=== PATIENT | female | born 1950 | race Caucasian/White ===

== ENCOUNTER → 2017-12-18 10:40 | Outpatient (CLI) | payer MEDICARE, BC ==
[~2017-12-18 10:40] MED LIST: COLACE100 MG PO; HYDROCODON-ACE1 EAC6 PO; LOVASTATIN10 MG PO; TRIAMTERENE-HCT1 TA1 PO
[2017-12-18 11:25] LABS: BASOPHILS 0.2 % (0-2); EOSINOPHILS 0.5 % (0-7); HEMATOCRIT 41.3 % (36.0-48.0); HEMOGLOBIN 13.9 g/dL (12-16); IMMATURE GRANULOCYTES 0.1 % (0-5); LYMPHOCYTES 24.6 % (15-50); MCH 31.6 pg (26.0-34.0); MCHC 33.7 g/dL (31.0-37.0); MCV 93.9 fL (80.0-100.0); MEAN PLATELET VOLUME 11.1 fL (7.4-10.4); MONOCYTES 5.9 % (2-11); NEUTROPHILS 68.7 % (40-80); PLATELET COUNT 300 10x3/uL (130-400); RDW 12.8 % (11.5-14.5); WBC 8.8 10x3/uL (4.8-10.8)
[2017-12-18 11:54] LABS: ALBUMIN 3.9 g/dL (3.4-5.0); ANION GAP 13.2 mmol/L (8-16); BILIRUBIN - TOTAL 1.2 mg/dL (0.2-1.3); CALCIUM 9.5 mg/dL (8.5-10.1); CARBON DIOXIDE 30.8 mmol/L (21.0-32.0); PROTEIN - SERUM 7.7 g/dL (6.4-8.2)
[2017-12-26 17:24] VITALS: BMI 22.8
== END | disposition home or self-care (01) ==
LOC: D.CT 10:40
PROVIDERS: Internal Medicine Gastroenterology
DX: R93.3 Abnormal findings on diagnostic imaging of other parts of digestive tract (principal); K63.89 Other specified diseases of intestine

== ENCOUNTER 2017-12-24 11:00 | Inpatient (IN) | payer MEDICARE, BC ==
[2017-12-22 15:41] LABS: BASOPHILS 0.4 % (0-2); EOSINOPHILS 0.9 % (0-7); HEMATOCRIT 41.2 % (36.0-48.0); IMMATURE GRANULOCYTES 0.2 % (0-5); LYMPHOCYTES 25.2 % (15-50); MCH 31.5 pg (26.0-34.0); MCV 92.8 fL (80.0-100.0); MEAN PLATELET VOLUME 11.3 fL (7.4-10.4); MONOCYTES 6.5 % (2-11); NEUTROPHILS 66.8 % (40-80); PLATELET COUNT 271 10x3/uL (130-400); RBC 4.44 10x6/uL (4.00-5.40); RDW 12.7 % (11.5-14.5); WBC 10.5 10x3/uL (4.8-10.8)
[2017-12-22 15:53] LABS: APTT 29.4 SECONDS (22.8-39.4); PROTIME 12.8 SECONDS (11.6-15.0)
[2017-12-22 15:56] LABS: ANION GAP 11.6 mmol/L (8-16); CALCIUM 9.2 mg/dL (8.5-10.1); CARBON DIOXIDE 31.1 mmol/L (21.0-32.0); CREATININE - SERUM 1.1 mg/dL (0.6-1.3)
[2017-12-22 16:01] LABS: POTASSIUM - SERUM 2.7 mmol/L (3.5-5.1)
[~2017-12-24] VITALS: Ht 157.5 cm; Wt 56.7 kg
[2017-12-24] VITALS (9 sets, daily range): BP systolic 82–120; BP diastolic 37–62; BMI 22.3
--- NOTE | ~2017-12-24 | OP ---
PATIENT NAME: NICHOLE VALENZUELA MEDICAL RECORD: [id number] :48 LOCATION:D.MS [id number] ADMISSION DATE:12/24/17 SURGEON: NEETA HOPKINS MD DATE OF OPERATION: 12/24/2017 PREOPERATIVE DIAGNOSIS: Sigmoid colon cancer. POSTOPERATIVE DIAGNOSIS: Sigmoid colon cancer. PROCEDURE: Hand-assisted laparoscopic surgery, sigmoid colectomy. SURGEON: Neeta Hopkins MD CAR WIPER: None. BLOOD LOSS: 100 cc. ANESTHESIA: General. COMPLICATIONS: None. The risks, possible complications and alternatives to procedure were explained to the patient. She elects to proceed. OPERATIVE COURSE: The patient was conveyed to the operating room electively on 12/24/2017. General anesthesia was induced by the anesthesia staff. The patient was positioned supine. The abdomen and upper thighs and perineum were sterilely prepped and draped. A Pfannenstiel type incision was accomplished, 2 fingerbreadths above the pubic symphysis. Sharp dissection was carried down through Sanjay's fascia. I then incised the anterior fascia transversely. Subfascial dissection was performed cephalad and caudad. I the rectus muscles in the midline. The peritoneal cavity was entered sharply. An Shaq retractor was placed. The Gelport was then attached on top of the Shaq retractor. A 12-mm trocar was inserted through the Gelport. CO2 insufflation was begun. Once a sufficient pneumoperitoneum had been achieved, 2 more trocars were inserted. These were 5-mm trocars. An abdominal survey was undertaken. Laparoscopic photographs were obtained. I inserted my hand in through the Gelport. Utilizing the EnSeal device, I incised along the left white line of Toldt up to the splenic flexure. I folded the left colon medially and this freed up some of the descending colon. I then incised in the intersigmoid fossa. I then took the top of the Gelport. I was able to exteriorize the sigmoid colon. I chose the distal extent of my resection to be the junction of the descending and sigmoid colons. I stapled across the colon here with a ADRIANNA-75 stapler. I then chose an area just proximal to the rectum to be at the distal extent of my resection. I stapled across here with a ADRIANNA-75 stapler as well. I then took down the sigmoid colon mesentery with an EnSeal device. The sigmoid colon was sent to pathology after I opened it up on the back table. The distal margin was a little close from my taste, so I decided to resect the sigmoid colon and a bit of the rectum. OPERATIVE REPORT [id number] NICHOLE VALENZUELA I then created a window in the mesorectum bluntly. I stapled across the upper rectum with a TA 60 stapler. The resulting large bowel which comprised was comprised of a bit of rectum as well as the remaining sigmoid colon was then removed after dividing the mesorectum with the EnSeal device. I then brought the descending colon and the rectum into apposition side by side. It was kept in place with a row of 3-0 Vicryl sutures, which kept the antimesenteric borders together. A small proctotomy and small colotomy were accomplished. Anvils of the ADRIANNA-75 stapler were advanced and then fired. The resulting colorectal defect was then closed with single firing of the TA 60 stapler. I irrigated locally. There was no bleeding. I ensured the small bowel was not twisted on its mesentery and that there had been no injury to the small bowel. I then reperitonealized with a running #1 Vicryl. The rectus muscles were approximated in the midline with multiple interrupted horizontal mattress #1 Vicryls. The anterior fascia was closed with a running #1 Vicryls. Sanjay fascia was approximated with interrupted 3-0 Vicryls. The subdermis was approximated with interrupted 3-0 Vicryls. The skin was closed with a running intracuticular 3-0 Vicryl. The trocar sites were closed with interrupted intracuticular 3-0 Vicryls. Sterile dressings were applied. The patient was extubated and conveyed to post-anesthesia care unit where she was in stable condition. TRANSINT:[id number] Voice Confirmation ID: [id number] DOCUMENT ID: [id number] NEETA HOPKINS MD CC: MILVIA GREWAL MD and CON HERNÁNDEZ MD [id number] DICTATION DATE: 02/17/181701 FIRE HOSE CURER: 02/17/181732 DIS IN 12/29/17 [id number] [place] [address]
--- NOTE | ~2017-12-24 | DS ---
PATIENT:NICHOLE VALENZUELA :48 MEDICAL RECORD: [id number] DISCHARGE SUMMARY ADMISSION DATE: 12/24/17 DISCHARGE DATE: 12/29/17 PRINCIPAL DIAGNOSIS: Colon cancer. PRINCIPAL PROCEDURE: JOSHUA sigmoid colectomy. HOSPITAL COURSE: The patient underwent the above operative procedure. Her pain was initially controlled with an epidural pain pump. Her bowel function returned. Her diet was advanced. She is being dismissed home. Discharge instructions were given to the patient verbally by me. She was instructed to call for any nausea, vomiting, fever, or chills. She is going to be dismissed home on [place] as well as Colace. I will see her in the office in 2-3 weeks. She is going to be following up with Dr. Solo as well. She is not to do any lifting or straining. I will plan for an MRI of the liver sometime in the future. TRANSINT:[id number] Voice Confirmation ID: [id number] DOCUMENT ID: [id number] NEETA HOPKINS MD at 1158 CC: [id number] DICTATION DATE: 12/29/171938 RECEPTIONIST/TELEPHONE OPERATOR: 12/30/17 1235 DIS IN 12/29/17 [facility] [address] [place] [address]
[~2017-12-24 11:00] MED LIST changes: -COLACE100 MG PO; -HYDROCODON-ACE1 EAC6 PO
[2017-12-25] VITALS (7 sets, daily range): BP systolic 82–104; BP diastolic 34–57; BMI 22.9; BMI 22.8
[2017-12-25 05:36] LABS: BASOPHILS 0 % (0-2); EOSINOPHILS 0 % (0-7); HEMATOCRIT 33.3 % (36.0-48.0); HEMOGLOBIN 11.2 g/dL (12-16); IMMATURE GRANULOCYTES 0.3 % (0-5); LYMPHOCYTES 5.9 % (15-50); MCH 30.9 pg (26.0-34.0); MCHC 33.6 g/dL (31.0-37.0); MEAN PLATELET VOLUME 11.2 fL (7.4-10.4); MONOCYTES 6.7 % (2-11); NEUTROPHILS 87.1 % (40-80); RBC 3.62 10x6/uL (4.00-5.40); RDW 13.1 % (11.5-14.5); WBC 10.3 10x3/uL (4.8-10.8)
[2017-12-25 06:01] LABS: PLATELET COUNT 210 10x3/uL (130-400)
[2017-12-25 06:13] LABS: ALBUMIN 2.7 g/dL (3.4-5.0); ANION GAP 12.4 mmol/L (8-16); BILIRUBIN - TOTAL 1.05 mg/dL (0.2-1.3); CALCIUM 7.8 mg/dL (8.5-10.1); CARBON DIOXIDE 27.3 mmol/L (21.0-32.0); CREATININE - SERUM 0.9 mg/dL (0.6-1.3); MAGNESIUM - SERUM 1.8 mg/dL (1.8-2.4); PHOSPHOROUS 2.8 mg/dL (2.5-4.9); PROTEIN - SERUM 5.6 g/dL (6.4-8.2)
[2017-12-25 06:18] LABS: POTASSIUM - SERUM 3.7 mmol/L (3.5-5.1)
[2017-12-26] VITALS: BP 89/49
[2017-12-26 04:00] VITALS: BP 95/52
[2017-12-26 08:10] VITALS: BP 98/52
[2017-12-26 11:42] VITALS: BP 95/40
[2017-12-26 16:09] VITALS: BP 114/45
[2017-12-26 17:24] VITALS: Ht 157.5 cm; Wt 56.7 kg
[2017-12-26 22:20] VITALS: BP 111/52
[2017-12-27 01:36] VITALS: BP 110/58
[2017-12-27 05:54] VITALS: BP 110/54
[2017-12-27 08:41] VITALS: BP 121/57
[2017-12-27 16:47] VITALS: BP 138/62
[2017-12-27 20:02] VITALS: BP 126/60
[2017-12-27 23:38] VITALS: BP 131/74
[2017-12-28 04:49] VITALS: BP 111/39
[2017-12-28 08:24] VITALS: BP 105/55
[2017-12-28 12:06] VITALS: BP 112/62
[2017-12-28 16:10] VITALS: BP 110/42
[2017-12-28 22:12] VITALS: BP 115/48
[2017-12-29 02:11] VITALS: BP 126/53
[2017-12-29 06:42] VITALS: BP 118/58
[2017-12-29 10:36] VITALS: BP 127/51
[2017-12-29 13:35] VITALS: BP 115/40
[2017-12-29 18:39] VITALS: BP 156/56
[2017-12-29] MEDS ORDERED: HYDROCODON-ACE1 EAC6 PO (20:18)
[2017-12-29] MEDS ORDERED: COLACE100 MG PO (20:18)
== END 2017-12-29 20:51 | disposition home or self-care (01) | DRG 331 ==
LOC: D.MS 11:00 → D.SDCHOLD 11:00 → D.MS 18:23
PROVIDERS: Anesthesiology; Surgery
PROC: 0DTN0ZZ Resection of Sigmoid Colon, Open Approach (ICD-10-PCS; principal; 2017-12-24 13:15)
DX: C18.7 Malignant neoplasm of sigmoid colon (principal); K76.89 Other specified diseases of liver; I10 Essential (primary) hypertension

== ENCOUNTER → 2020-04-18 11:27 | Outpatient (CLI) | payer MEDICARE, BC ==
[2017-12-26 17:24] VITALS: BMI 22.8
[~2020-04-18 11:27] MED LIST changes: +COLACE100 MG PO; +HYDROCODON-ACE1 EAC6 PO
== END | disposition home or self-care (01) ==
LOC: D.LAB 11:27
PROVIDERS: ATTEND Internal Medicine Gastroenterology
DX: K52.9 Noninfective gastroenteritis and colitis, unspecified (principal)

== ENCOUNTER 2020-05-06 03:53 | Inpatient (IN) | payer MEDICARE, BC ==
[2020-05-06] VITALS (8 sets, daily range): BP systolic 94–131; BP diastolic 40–64; Ht 157.5 cm; Wt 63.1 kg
[~2020-05-06] VITALS: Ht 157.5 cm; Wt 63.1 kg
--- NOTE | ~2020-05-06 | HEMODYNAMI ---
PATIENT:NICHOLE VALENZUELA MEDICAL RECORD: [id number] : 48 LOCATION:[facility] D.2306 ADMISSION DATE: 05/06/20 Generatedon:05/09/202014:55 Patient name: NICHOLE VALENZUELA Patient #: [id number] SSN: : [id number] Date of study: 05/09/2020 Page: Of Hemodynamic Procedure Report Patient Data Patient Demographics Procedure consent was obtained First Name: NICHOLE Gender: Female Last Name: BIANCA : 1950 [facility] Initial: BECKY Age: 69 year(s) Patient #: [id number] Race: Additional ID: [id number] Contact details Address: [address] State: [place] City: [place] Zip code: [address] Past Medical History Allergies Allergen Reaction Date Comments Reported Other allergy 05/09/2020 KEFLEX Admission Admission Data Admission Date: 05/06/2020 Admission Time: 6:34 Room #: D.2306 Height (in.): 61.81 BSA: 1.63 (m2) Height (cm.): 157 BMI: 25.56 (kg/m2) Weight (lbs.): 138.89 Weight (kg.): 63 Lab Results Lab Result Date: 05/09/2020 Lab Result Time: 0:00 Biochemistry Name Units Result Min Max BUN mg/dl 16 --(---*)-- 7 18 Creatinine mg/dl 2.9 --(----)-* 0.6 1.3 eGFR ml/min 17 *-(----)-- 90 120 NONAFRICAN CBC Name Units Result Min Max Hematocrit % 27.5 *-(----)-- 42 54 Hemoglobin g/dl 8.1 *-(----)-- 13.5 17.5 Procedure Procedure Types Cath Procedure Diagnostic Procedure LHC LHC w/Coronaries Procedure Description Procedure Date Procedure Date: 05/09/2020 Procedure Start Time: 14:34 Procedure End Time: 14:52 Procedure Staff Name Function Chris Sahu MD Performing Physician Guera Thayer RT Monitor Pau Skinner RT Scrub Rhianna Kelly RN Nurse Procedure Data Cath Procedure Fluoroscopy Diagnostic fluoroscopy Total fluoroscopy Time: 1.2 time: 1.2 min min Diagnostic fluoroscopy Total fluoroscopy dose: 377 dose: 377 mGy mGy Contrast Material Contrast Material Type Amount (ml) Isovue 300 64 Entry Location Entry Primary Successful Side Size Upsize Upsize Entry Closure Succes sful Closure Location (Fr) 1 (Fr) 2 (Fr) Remarks Device Remarks Femoral Right 5 Fr artery Estimated blood loss: 5 ml Diagnostic catheters Device Type Used For End Catheter Placement MULTIPACK JL 4.0 5Fr Left Coronary catheter Angiography MULTIPACK 3DRC 5Fr Right Coronary catheter Angiography MULTIPACK Pigtail 5 Fr LV Angiography catheter Procedure Complications No complications Procedure Medications Medication Administration Route Dosage Oxygen 100 Lidocaine 2% added to field 20 Heparin Flush Bag added to field 2 bags (1000units/500ml NS) 0.9% NaCl I.V. 100 ml/hr Sodium Bicarbonate I.V. drip 125 ml/hr Drip (3amps/1LD5W) unlisted medication I.V. drip 8 unlisted medication I.V. drip 20 unlisted medication I.V. drip 40 unlisted medication I.V. drip 125 ml/hr Dopamine I.V. drip 5 mcg/kg/min (400mg/250ml D5W) Hemodynamics Rest BSA: 1.63 (m2) HGB: 8.1 (g/dl) O2 Consumption: Estimated: 173.95 (ml/min) O2 Con sumption indexed: Estimated:106.72 (ml/min/m) Heart Rate: 108 (bpm) Pressure Samples Time Site Value (mmHg) Purpose Heart Use Rate(bpm) 14:38 LV 91/13,20 Snapshot 110 Gradients Valve Time Site Site Mean SEP/DFP Peak To Heart Use 1 2 (mmHg) (sec/min) Peak Rate (mmHg) (bpm) Aortic 14:39 LV AO 110 Snapshots Pre Cath Intra NCS Post Cath Vital Signs Time Heart Resp SPO2 etCO2 NIBP Rhythm Pain Sedation Rate (ipm) (%) (mmHg) (mmHg) Status Level (bpm) 14:30:00 108 [address] 0 (11) 3(A) , No pain 14:31:24 [address] 0 (11) 3(A) Exceeded , No pain 14:36:23 109 21 100 0 60/80(0) ST 0 (11) 3(A) , No pain 14:37:47 [address] 0 (11) 3(A) Exceeded , No pain 14:42:46 112 [address] 0 (11) 3(A) , No pain 14:44:10 [address] 0 (11) 3(A) Exceeded , No pain 14:49:09 110 [address] 0 (11) 3(A) , No pain 14:50:13 109 22 100 0 55/38(46) ST 0 (11) 3(A) , No pain Medications Time Medication Route Dose Verified Delivered Reason Not es Effectiveness by by 14:30:37 Oxygen intubated 100% Chris Moctezuma for low [address] Bolivar Kelly sats RN 14:30:46 Lidocaine 2% added to 20ml vial Chris Perez for local field [facility] anesthetic MD RICE 14:30:53 Heparin Flush added to 2 bags Chris Perez used for Bag field [facility] procedure (1000units/500ml MD RICE NS) 14:31:04 Sodium I.V. drip 125 ml/hr Chris Moctezuma Per Con t Bicarbonate Drip [facility] Bolivar Kelly physician from (3amps/1LD5W) agricultural plow operator 14:31:04 0.9% NaCl I.V. 100 ml/hr Chris Perez Per [facility] physician MD RICE 14:32:35 Norepinephrine I.V. drip 8mg/250 ml Chris Moctezuma Per Con t @ 30 [facility] Bolivar Kelly physician from mcg/min agricultural plow operator 14:33:46 neosynephrine I.V. drip 20 mg/250 Chris Sra Per Con t ml @ 200 [facility] Bolivar Kelly physician from mcg/min agricultural plow operator 14:34:32 Vasopressin I.V. drip 40 Chris Moctezuma Per units/100 [facility] Bolivar Kelly physician ml @ 0.04 MD MOSS units/min 14:35:19 blood I.V. drip 125 ml/hr Chris Moctezuma Per transfusion [facility] Bolivar Kelly physician RN 14:35:44 Dopamine I.V. drip 5 Chris Moctezuma Per (400mg/250ml mcg/kg/min [facility] Bolivar Kelly physician D5W) zipper trimmer hand Log Time Note 13:41:04 Informed consent obtained and on chart 13:42:06 Procedure Status Urgent Heart Cath (IP). 13:42:08 Time tracking: Regular hours (M-F 7:00 - 5:00) 13:42:12 Plan of Care:Hemodynamics will remain stable., Cardiac rhythm will remain stable., Comfort level will be maintained., Respiratory function will remain adequate., Patient/ family verbilizes understanding of procedure., Procedure tolerated without complication., Recovers from procedure without complications.. 13:42:18 H&P Date Dictated: 05/08/2020 ER History on chart.. 13:42:33 Patient allergic to Other allergyKEFLEX 13:43:48 Lab Result : BUN 16 mg/dl 13:43:48 Lab Result : eGFR NONAFRICAN 17 ml/min 13:43:48 Lab Result : Creatinine 2.9 mg/dl 13:43:48 Lab Result : Hemoglobin 8.1 g/dl 13:43:48 Lab Result : Hematocrit 27.5 % 13:44:20 DR HELTON AWARE OF LABS AND WANTS TO PROCEED WITH CASE. 13:51:17 Patient Weight : 138.89 lbs 13:51:23 Patient Height : 61.81 inches 14:03:12 Rhianna Kelly RN sent for patient. Start room use. 14:27:44 Quick Combo opened to sterile field. 14:28:06 Patient received from ICU to CCL 1 On ventilator. Tansferred to table i n Supine position. 14:28:09 Warm blankets applied, and wei hugger turned on for patient comfort. 14:28:09 Correct patient and procedure confirmed by team. 14:28:10 ECG and BP/O2 sat monitors applied to patient. 14:28:11 Vital chart was started 14:28:14 Baseline sample Acquired. 14:28:24 Quick combo pads placed on patients chest and back. 14:28:24 Rhythm: sinus tachycardia 14:28:27 Full Disclosure recording started 14:28:28 - 14::46 Right groin area was prepped with chlora-prep and draped in sterile fashion 14:30:12 Unable to provide pre-op teaching due to educational barrier. ON VENTILATOR 14:30:19 Patient NPO since Midnight. 14:30:32 Is the patient allergic to Iodine/contrast media? No. 14:30:34 Was the patient premedicated? Yes 14:30:37 Oxygen 100% intubated on vent was administered by Rhianna Kelly RN; for low 02 sats; Verbal order read back and verified. 14:30:46 Lidocaine 2% 20ml vial added to field was administered by Chris Sahu MD; for local anesthetic; Verbal order read back and verified. 14:30:53 Heparin Flush Bag (1000units/500ml NS) 2 bags added to field was administered by Chris Sahu MD; used for procedure; Verbal order read back and verified. 14:31:04 0.9% NaCl 100 ml/hr I.V. was administered by Chris Sahu MD; Per physician; Verbal order read back and verified. 14:31:04 Sodium Bicarbonate Drip (3amps/1LD5W) 125 ml/hr I.V. drip was administered by Rhianna Kelly RN; Per physician; Cont from icu Verbal order read back and verified. 14:32:35 Norepinephrine 8mg/250 ml @ 30 mcg/min I.V. drip was administered by Rhianna Kelly RN; Per physician; Cont from icu Verbal order read back and verified. 14:33:19 Is patient on blood thinner?Yes 14:33:29 Patient diabetic? No. 14:33:37 Physician arrived 14:33:41 --------ALL STOP TIME OUT------ 14:33:42 Final Timeout: patient, procedure, and site verified with staff and physician. All members of the team are in agreement. 14:33:46 neosynephrine 20 mg/250 ml @ 200 mcg/min I.V. drip was administered by Rhianna Kelly RN; Per physician; Cont from icu Verbal order read back and verified. 14:33:51 Right groin site verified by team. 14:33:55 Fire Safety Assessment: A--An alcohol-based skin anteseptic being used preoperatively., C--Open oxygen or nitrous oxide is being used., D--An ESU, laser, or fiber-optic light is being used. 14:34:02 Physical assessment completed. ASA score P 3 - A patient with severe systemic disease as per Chris Sahu MD. 14:34:09 4) 15-29 Severley reduced kidney function. 14:34:13 Maximum allowable contrast dose (3.7 X eGFR X 0.75)47 ml. 14:34:19 Sedation plan: IV Moderate Sedation Medication:Versed, Fentanyl 14:34:26 Use device set Femoral Dx 14:34:27 ACIST Syringe (39060) opened to sterile field. 14:34:27 Bag Decanter (2002S) opened to sterile field. 14:34:28 Medline Cath Pack ([id number]) opened to sterile field. 14:34:30 ACIST Hand Control (64409) opened to sterile field. 14:34:31 ACIST Manifold (91242) opened to sterile field. 14:34:31 DIAGNOSTIC Multipack 5Fr catheter set (IR4606) opened to sterile field. 14:34:32 Vasopressin 40 units/100 ml @ 0.04 units/min I.V. drip was administered by Rhianna Kelly RN; Per physician; Verbal order read back and verified. 14:34:32 Tegaderm 4 x 4 (1626W) opened to sterile field. 14:34:34 SHEATH 5FR Carter (KAL441) opened to sterile field. 14:34:35 EMERALD Guide Wire (069-087) opened to sterile field. 14:34:40 Procedure started. 14:34:46 Local anesthetic to right femoral artery with Lidocaine 2% by Chris Lutz MD.INITIAL ACCESS ONLY 14:35:00 A 5 Fr sheath was inserted into the Right Femoral artery 14:35:12 A MULTIPACK JL 4.0 5Fr catheter was advanced over the wire and used for Left Coronary Angiography. 14:35:19 blood transfusion 125 ml/hr I.V. drip was administered by Rhianna Kelly RN; Per physician; Verbal order read back and verified. 14:35:28 LCA angiography performed. 14:35:33 Injector settings: Ml/sec: 3, Volume: 6, 14:35:35 Catheter removed. 14:35:42 A MULTIPACK 3DRC 5Fr catheter was advanced over the wire and used for Right Coronary Angiography. 14:35:44 Dopamine (400mg/250ml D5W) 5 mcg/kg/min I.V. drip was administered by Rhianna Kelly RN; Per physician; Verbal order read back and verified. 14:36:04 Zero performed for pressure channel P1 14:36:15 Zero performed for pressure channel P1 14:36:47 RCA angiography performed. 14:36:52 Injector settings: Ml/sec: 3, Volume: 6, 14:37:05 Catheter removed. 14:37:14 Zero performed for pressure channel P1 14:37:26 A MULTIPACK Pigtail 5 Fr catheter was advanced over the wire and used for LV Angiography. 14:38:02 Injector settings: Ml/sec: 5, Volume: 15, 14:38:34 LV gram done using MORELAND 14:39:32 EF : 15 % 14:39:37 LV hemodynamics recorded. 14:40:16 LV gram done using MORELAND 14:40:44 Injector settings: Ml/sec: 10, Volume: 20, 14:41:13 Catheter removed. 14:42:11 Pt arrived to CL intubated. No sedation infusing at this time. Pt non reactive to stimuli or pain. Pupils reactive to light, left pupil 3+ right pupil 5+. ZEN EtCO2 d/t vent. BP 60s systolic. Dopmaine infusion started @ 5mcg/kg/min per Dr. Helton. L PICC line noted to have saturated drsg w/ bruising to picc site. 14:42:29 THE 5 TUNISIAN SHEATH IS SUTURED IN PLACE WITH 2.0 SILK. 14:42:32 Procedure ended.(Physican Out) 14:42:51 Contrast amount:Isovue 300 64ml. 14:43:00 Fluoroscopy time 01.20 minutes. 14:43:05 Flurop Dose total: 377 14:43:05 Fluoroscopy dose: 377 mGy 14:43:13 Dose Area Product 22440 mGy/cm. 14:43:18 Maximum allowable dose exceeded? Yes. 14:43:20 Sharps counted by scrub and verified by R.N. 14:43:35 Post right femoral artery:stable 14:43:43 Post-procedure physical assessment completed. ASA score P 3 - A patient with severe systemic disease as per Chris Sahu MD. 14:43:53 Post procedure rhythm: unchanged. 14:43:57 Estimated blood loss: 5 ml 14:44:02 Patient needs reinforcement of post procedure teaching. 14:47:36 A NS PRESSURE BAG IS ATTACHED TO THE RIGHT FEMERAL SHEATH FOR IV ACCESS . 14:48:41 Procedure and supply charges have been captured, reviewed, submitted an d are correct. 14:50:38 Procedure Complication : No complications 14:51:40 Vital chart was stopped 14:51:43 [facility] Findings: mild to moderate CAD (<70%) 14:51:48 See physician's report for complete and final results. 14:51:55 Report given to ICU. 14:52:02 Patient transfered to ICU with Bed. 14:52:55 Procedure ended. 14:52:55 Full Disclosure recording stopped 14:52:59 End room use (Document Last) Device Usage Item Name Manufacture Quantity Catalog Hospital Part Current Minima l Lot# / Number Charge Number Stock Stock Serial# Code ACIST Acist 1 84427 757324 087344 [id number] 20 Syringe Medical (08740) Systems Inc Bag Microtek 1 2001S 307066 85082 804485 5 Decanter Medical Inc. () Medline Medline 1 [id number] 433804 88566 882755 5 Cath Pack ([id number]) ACIST Hand Acist 1 50675 495788 219568 536623 5 Control Medical (07861) Systems Inc ACIST Acist 1 51280 192594 860487 363782 5 Manifold Medical (50159) Systems Inc DIAGNOSTIC Cardinal 1 [id number] 392736 27626 102351 30 Multipack GrowYo 5Fr catheter set (AE1112) Tegaderm 4 3M 1 1626W 940485 571262 141674 5 x 4 (1626W) SHEATH 5FR Terumo 1 [id number] 942106 156035 271572 5 Carter (BKT535) EMERALD Cardinal 1 502-455 541325 372613 133836 5 Guide Wire [facility] (671-193) MULTIPACK Cardinal 1 286905 5 JL 4.0 5Fr Health catheter MULTIPACK Cardinal 1 295198 5 3DRC 5Fr [facility] catheter MULTIPACK Cardinal 1 669566 5 Pigtail 5 Health Fr catheter Quick Combo Edge Systems 1 80060-497118 033927 003811 455462 5 Signature Audit [place] Stage Time Signature Unsigned Intra-Procedure 05/09/2020 Guera 2:53:21 PM Jeovany RT(R) (CV) Intra-Procedure 05/09/2020 Rhianna Kelly 2:54:14 PM RN Intra-Procedure 05/09/2020 Chris More 2:55:03 PM Bolivar RICE [id number] [place] [address]
[2020-05-06] MEDS ORDERED: POTASSIUM99 M1 (03:59)
[2020-05-06] MEDS ORDERED: DELZICOL400 M1 PO (04:01)
[2020-05-06] MEDS ORDERED: ALIGN PO (04:02)
[2020-05-06] MEDS ORDERED: ALENDRONATE SOD35 MG PO (04:02)
[2020-05-06] MEDS ORDERED: TRIAMTERENE-HC1 EAC3 PO (04:03)
[2020-05-06 05:48] LABS: BASOPHILS 0.2 % (0-2); EOSINOPHILS 0.1 % (0-7); HEMATOCRIT 38.5 % (36.0-48.0); HEMOGLOBIN 12.9 g/dL (12-16); IMMATURE GRANULOCYTES 0.2 % (0-5); LYMPHOCYTES 10.9 % (15-50); MCH 30.9 pg (26.0-34.0); MCHC 33.5 g/dL (31.0-37.0); MCV 92.1 fL (80.0-100.0); MEAN PLATELET VOLUME 11.5 fL (7.4-10.4); MONOCYTES 7.3 % (2-11); NEUTROPHILS 81.3 % (40-80); PLATELET COUNT 169 10x3/uL (130-400); RBC 4.18 10x6/uL (4.00-5.40); RDW 13.8 % (11.5-14.5); WBC 8.5 10x3/uL (4.8-10.8)
[2020-05-06 05:53] LABS: ALBUMIN 3.7 g/dL (3.4-5.0); ANION GAP 11.4 mmol/L (8-16); BILIRUBIN - TOTAL 0.82 mg/dL (0.2-1.3); CARBON DIOXIDE 28.1 mmol/L (21.0-32.0); CREATININE - SERUM 1.3 mg/dL (0.6-1.3); PROTEIN - SERUM 7.5 g/dL (6.4-8.2)
[2020-05-06 05:56] LABS: POTASSIUM - SERUM 2.5 mmol/L (3.5-5.1)
[2020-05-06 07:16] LABS: C-REACTIVE PROTEIN 2.7 mg/dL (0.0-0.9); MAGNESIUM - SERUM 1.4 mg/dL (1.8-2.4)
--- NOTE | 2020-05-06 07:57 | NUR ---
PATIENT ARRIVED TO THE UNIT AND ADMITTED TO ROOM 2101 AT THIS TIME FROM ED VIA STRETCHER. PATIENT ALERT/ORIETNED, NO ACUTE DISTRESS NOTED. PATIENT ABLE TO TRANSFER SELF FROM STRETCHER TO BED. CALL LIGHT WITHIN REACH. ORIENTATION PROVIDED TO ROOM.
[2020-05-06] MEDS ORDERED: LOVASTATIN10 MG PO (08:11)
--- NOTE | 2020-05-06 11:51 | NUR ---
RESTING IN BED WITH EYES CLOSED, EASILY AROUSED. RESP EVEN AND UNLABORED. DRY COUGH NOTED. IV FLUIDS INFUSING ORDERED AT THIS TIME. AWAITING RESULTS OF COVID. NO DISTRESS.
--- NOTE | 2020-05-06 13:34 | NUR ---
MEDICATED FOR TEMP 100.7 AT THIS TIME.
[2020-05-06 15:01] LABS: CALCIUM 7.9 mg/dL (8.5-10.1); CARBON DIOXIDE 28.6 mmol/L (21.0-32.0); CREATININE - SERUM 1.5 mg/dL (0.6-1.3); MAGNESIUM - SERUM 1.4 mg/dL (1.8-2.4); POTASSIUM - SERUM 3.6 mmol/L (3.5-5.1)
--- NOTE | 2020-05-06 16:00 | NUR ---
PATIENT RESTING IN BED WITH EYES CLOSED. NO DISTRESS. CALL LIGHT WITHIN REACH.
--- NOTE | 2020-05-06 19:30 | NUR ---
PT TEMP 102.8 ORAL. TYLENOL 650MG GIVEN AT THIS TIME. NO DISTRESS NOTED.
--- NOTE | 2020-05-06 21:00 | NUR ---
TEMP 100.7 AT THIS TIME
--- NOTE | 2020-05-06 23:24 | NUR ---
TEMP 99.7 ON RECHECK.
[2020-05-06 23:51] LABS: BILIRUBIN NEGATIVE (NEGATIVE); KETONE NEGATIVE (NEGATIVE); NITRITE NEGATIVE (NEGATIVE); UROBILINOGEN NORMAL (NORMAL)
[2020-05-06 23:52] LABS: BACTERIA FEW /hpf (NEGATIVE); EPITHELIAL CELLS RARE /hpf (0-5); GRANULAR CAST 0-5 /lpf (NONE SEEN); RED CELLS - URINE 0-5 /hpf (0-5); WHITE CELLS - URINE 0-5 /hpf (NEGATIVE)
[2020-05-07] VITALS: BP 94/49
--- NOTE | 2020-05-07 01:43 | NUR ---
I have reviewed this patient and I concur with the Shift Assessment completed by the Licensed Practical Nurse today this shift.
[2020-05-07 04:00] VITALS: BP 120/47
[2020-05-07 05:44] LABS: BASOPHILS 0.1 % (0-2); EOSINOPHILS 0.3 % (0-7); HEMATOCRIT 33.3 % (36.0-48.0); HEMOGLOBIN 10.7 g/dL (12-16); IMMATURE GRANULOCYTES 0.1 % (0-5); LYMPHOCYTES 17.5 % (15-50); MCH 29.9 pg (26.0-34.0); MCHC 32.1 g/dL (31.0-37.0); MEAN PLATELET VOLUME 11.9 fL (7.4-10.4); MONOCYTES 8.3 % (2-11); NEUTROPHILS 73.7 % (40-80); PLATELET COUNT 134 10x3/uL (130-400); RBC 3.58 10x6/uL (4.00-5.40); RDW 14.2 % (11.5-14.5); WBC 7.4 10x3/uL (4.8-10.8)
[2020-05-07 06:06] LABS: ANION GAP 11.4 mmol/L (8-16); BILIRUBIN - TOTAL 0.68 mg/dL (0.2-1.3); CALCIUM 7.6 mg/dL (8.5-10.1); MAGNESIUM - SERUM 1.3 mg/dL (1.8-2.4); POTASSIUM - SERUM 3.4 mmol/L (3.5-5.1); PROTEIN - SERUM 6.1 g/dL (6.4-8.2)
[2020-05-07 06:08] LABS: ALBUMIN 2.7 g/dL (3.4-5.0); CREATININE - SERUM 1.1 mg/dL (0.6-1.3)
--- NOTE | 2020-05-07 07:00 | NUR ---
RECEIVED REPORT. ASSUMED CARE OF PATIENT. CALL LIGHT WITHIN REACH. DENIES NEEDS AT THIS TIME. RESTING IN BED WITH EYES CLOSED, EASILY AROUSED. BEDSIDE SHIFT REPORT COMPLETE. WHITE BOARD UPDATED.
[2020-05-07 08:00] VITALS: BP 103/48
--- NOTE | 2020-05-07 11:04 | NUR ---
20 GAUGE IV REMOVED FROM LEFT AC DUE TO INFILTRATION. NO BLEEDING FROM SITE. CATHETER TIP INTACT. 2X2 GAUZE APPLIED AND SECURED WITH TAPE. 22 GAUGE IV PLACED TO LEFT HAND X 1 STICK. GOOD BLOOD RETURN, EASY FLUSH. PATIENT TOLERATED IV PLACEMENT WELL. TAPED, DATED, AND SECURED. IV ABX INFUSING ORDERED AT THIS TIME. NO DISTRESS. CALL LIGHT WITHIN REACH.
--- NOTE | 2020-05-07 11:33 | NUR ---
MEDICATED FOR ELEVATED TEMP, 102.8 AT THIS TIME.
[2020-05-07 16:00] VITALS: BP 103/59
--- NOTE | 2020-05-07 17:06 | NUR ---
MEDICATED FOR FEELING ACHY AT THIS TIME.
[2020-05-07 20:00] VITALS: BP 98/37
--- NOTE | 2020-05-07 21:54 | NUR ---
PT BACK FROM CT AT APPROX 1925 HRS. IVAB RESTARTED. NO DISTRESS NOTED. ASSESSMENT COMPLETED AT 1950 HRS. VSS. ALERT AND ORIENTED TO PERSON, PLACE AND TIME. SHIELDS. LUNGS DIMINISHED IN BASES BILAT. IV TO L HAND WITH IVAB INFUSING. PALPABLE PERIPHERAL PULSES. PM MEDS GIVEN PER ORDERS. DENIED ANY DISCOMFORT AT THAT TIME. PT CURRENTLY WATCHING TV. SR UP X1, CALL LIGHT WITHIN REACH.
--- NOTE | 2020-05-07 23:01 | NUR ---
PT STATES IV TO L HAND PAINFUL. DC'D WITH CATHETER IN TACT. NEW IV STARTED #22 TO L HAND WITH ATTEMPT X1. PT TOLERATED PROCEDURE WELL. IV NS AT 50CC/HR RESUMED.
--- NOTE | 2020-05-07 23:56 | NUR ---
TEMP 101.2. TYLENOL 650MG PO GIVEN FOR ELEVATED TEMP.
[2020-05-08] VITALS (15 sets, daily range): BP systolic 66–128; BP diastolic 00–107
--- NOTE | 2020-05-08 02:18 | NUR ---
PT RESTING WITH EYES CLOSED. RESP EVEN AND REGULAR. SR UPX1, CALL LIGHT WITHIN REACH.
--- NOTE | 2020-05-08 04:40 | NUR ---
PT STATED HER FEVER BROKE. BED LINENS WET. NEW LINENS PLACED ON BED. PT GAVE SELF A SPONGE BATH. BACK TO BED WITH STEADY GAIT. SR UP X1, CALL LIGHT WITHIN REACH.
--- NOTE | 2020-05-08 06:04 | NUR ---
VSS THROUGHOUT NIGHT. TEMP WNL AFTER TYLENOL ADMINISTRATION. PT STATES FEELS BETTER THIS AM. NEEDS MET; WILL CONTINUE TO MONITOR.
--- NOTE | 2020-05-08 07:10 | NUR ---
RECEIVE BEDSIDE SHIFT REPORT. RESTING IN BED WITH TV ON. DENIES ANY NEEDS AT THIS TIME. WILL CONTINUE PLAN OF CARE AND SAFETY PRECAUTIONS.
[2020-05-08 07:22] LABS: BASOPHILS 0.2 % (0-2); EOSINOPHILS 0.2 % (0-7); HEMATOCRIT 34.5 % (36.0-48.0); HEMOGLOBIN 11.2 g/dL (12-16); IMMATURE GRANULOCYTES 0.2 % (0-5); LYMPHOCYTES 16.4 % (15-50); MCHC 32.5 g/dL (31.0-37.0); MCV 92.5 fL (80.0-100.0); MEAN PLATELET VOLUME 11.8 fL (7.4-10.4); PLATELET COUNT 126 10x3/uL (130-400); RBC 3.73 10x6/uL (4.00-5.40); RDW 14.4 % (11.5-14.5); WBC 6.1 10x3/uL (4.8-10.8)
--- NOTE | 2020-05-08 07:45 | NUR ---
RECEIVE CALL FROM LAB FOR D-DIMER 2.5. CALLED DR. LANTIGUA AND SPOKE WITH HIM ABOUT HER LABS AND BREATHING. NO CURRENT ORDERS. WILL CONTINUE TO MONITOR.
[2020-05-08 09:01] LABS: ALBUMIN 2.7 g/dL (3.4-5.0); ANION GAP 10.2 mmol/L (8-16); BILIRUBIN - TOTAL 0.68 mg/dL (0.2-1.3); CARBON DIOXIDE 26.4 mmol/L (21.0-32.0); POTASSIUM - SERUM 3.6 mmol/L (3.5-5.1); PROTEIN - SERUM 6.6 g/dL (6.4-8.2)
[2020-05-08 09:08] LABS: CALCIUM 7.6 mg/dL (8.5-10.1)
[2020-05-08 10:29] LABS: ERYTHROCYTE SEDIMENTATION RATE 50 mm/hr (0-30)
--- NOTE | 2020-05-08 10:42 | NUR ---
D/C LEFT HAND PIV. TIP INTACT. RESITED IV IN RIGHT WRIST 20 GUAGE. NS@ 50ML/HR.
--- NOTE | 2020-05-08 16:38 | NUR ---
PATIENT HAVING CHEST PAIN. CALLED [facility], ORDERED AN EKG AND CARDIAC ENZYMES STAT. CALLED LAB AND ON THE WAY. EKG SHOWS SINUS TACH.
[2020-05-08 17:40] LABS: CKMB 6.7 U/L (0.0-3.6); CREATINE KINASE 238 UL (21-215)
[2020-05-08 17:41] LABS: TROPONIN-I 3.999 ng/mL (0.000-0.060)
--- NOTE | 2020-05-08 18:30 | NUR ---
IN ROOM PATIENT SOB AND HEART RATE ELEVATED. PLACED ON 10L HIGH FLOW NC. STILL SOB CALLED RAPID RESPONSE 1839. PLACED ON MONITOR, APPEARED TO BE IN UNCONTROLLED A FIB. GAVE AMIODORONE BOLUS. PATIENT STARTED TO SINA DOWN CODE BLUE CALLED AT 1919. RESULTED IN PATIENT INTUBATED, LEVO DRIP, TRANSFERRED TO ICU.
--- NOTE | 2020-05-08 18:35 | NUR ---
RESPONDED TO RAPID RESPONSE, PT TACHYPNIC, HR IN 170'S, PT PLACED ON TELEMETRY, 12 LEAD EKG OBTAINED, PLACED ON 100% NRB, CALLED AGUEDA BUSTILLO APN
--- NOTE | 2020-05-08 19:00 | NUR ---
STARTED AMOIDARONE BOLUS, PT ALERT, REMAINS IN UCAF 170'S
--- NOTE | 2020-05-08 19:20 | NUR ---
AMIO BOLUS COMPLETED, TELEMETRY STATES HR 80, PT BECAME UNREPONSIVE, STOPPED BREATHING, CODE BLUE CALLED AND CPR INITIATED
--- NOTE | 2020-05-08 19:45 | NUR ---
PT TRANSFERRED TO ICU VIA BED
[2020-05-08 20:05] LABS: APTT 33.8 SECONDS (22.8-39.4); INR 1.13 (0.85-1.17); PROTIME 14.5 SECONDS (11.6-15.0)
[2020-05-09] VITALS (63 sets, daily range): BP systolic 53–159; BP diastolic 4–118
[2020-05-09 00:06] LABS: CKMB 87.9 U/L (0.0-3.6)
[2020-05-09 00:18] LABS: CREATINE KINASE 1811 UL (21-215); TROPONIN-I 32.556 ng/mL (0.000-0.060)
[2020-05-09 02:01] LABS: INR 3.46 (0.85-1.17); PROTIME 34.2 SECONDS (11.6-15.0)
[2020-05-09 02:02] LABS: APTT > 200.0 SECONDS (22.8-39.4)
--- NOTE | 2020-05-09 07:30 | NUR ---
unresponsive to painful stimuli. pupils fixed and large. ett secure to vent bilateral lung sounds equal. hands and feet cold to touch and blue. right ac iv infusing with bicarb. right forearm infusing with levophed at 30 mcg, neosynphrine at 200 mcg. vaospressin at 0.04 units. heparin gtt at [address] barros cath without urine in bag small amount in tubing. flat in bed. posterior pedal pulses with doppler, radial pulses checked with doppler. all extremitites swollen.
[2020-05-09 08:12] LABS: ANA REFLEX - DIRECT Negative (Negative)
[2020-05-09 09:02] LABS: BASOPHILS 0.2 % (0-2); EOSINOPHILS 0.1 % (0-7); IMMATURE GRANULOCYTES 0.3 % (0-5); LYMPHOCYTES 24.4 % (15-50); MCH 30.3 pg (26.0-34.0); MCHC 29.5 g/dL (31.0-37.0); MEAN PLATELET VOLUME 10.7 fL (7.4-10.4); MONOCYTES 4.1 % (2-11); NEUTROPHILS 70.9 % (40-80); RDW 16.1 % (11.5-14.5)
[2020-05-09 09:22] LABS: APTT > 200.0 SECONDS (22.8-39.4); HEMATOCRIT 27.5 % (36.0-48.0); HEMOGLOBIN 8.1 g/dL (12-16); INR 8.34 (0.85-1.17); PROTIME 67.2 SECONDS (11.6-15.0); RBC 2.67 10x6/uL (4.00-5.40); WBC 8.8 10x3/uL (4.8-10.8)
[2020-05-09 09:23] LABS: PLATELET COUNT 33 10x3/uL (130-400)
[2020-05-09 09:44] LABS: ALKALINE PHOSPHATASE 154 U/L (30-120); BILIRUBIN - TOTAL 1.01 mg/dL (0.2-1.3); CALCIUM 7.6 mg/dL (8.5-10.1); CHLORIDE - SERUM 109 mmol/L (98-107); CKMB 78.9 U/L (0.0-3.6); GLUCOSE 79 mg/dL (74-106); MAGNESIUM - SERUM 2.1 mg/dL (1.8-2.4); POTASSIUM - SERUM 3.6 mmol/L (3.5-5.1); SODIUM 155 mmol/L (136-145)
[2020-05-09 09:48] LABS: ALBUMIN 1.7 g/dL (3.4-5.0); CALC OSMOLALITY 306 mosm/kg (275-300); CARBON DIOXIDE 12.1 mmol/L (21.0-32.0); CREATINE KINASE 4331 UL (21-215); CREATININE - SERUM 2.9 mg/dL (0.6-1.3); PHOSPHOROUS 9.3 mg/dL (2.5-4.9); PROTEIN - SERUM 3.9 g/dL (6.4-8.2); TROPONIN-I 38.651 ng/mL (0.000-0.060); UREA NITROGEN 16 mg/dL (7-18); eGFR NON AFRICAN AMERICAN 17 mL/min (90-120)
[2020-05-09 10:13] LABS: PLATELET ESTIMATE DECREASED
[2020-05-09 10:16] LABS: ALT (SGPT) 4296 U/L (10-68); PRO BNP 143517 pg/mL (0-125)
--- NOTE | 2020-05-09 11:00 | NUR ---
HEPARIN GTT TURNED OFF
[2020-05-09 11:10] LABS: BASOPHILS 0.1 % (0-2); EOSINOPHILS 0.1 % (0-7); HEMATOCRIT 27.7 % (36.0-48.0); HEMOGLOBIN 8.1 g/dL (12-16); IMMATURE GRANULOCYTES 0.4 % (0-5); LYMPHOCYTES 19.6 % (15-50); MCH 29.6 pg (26.0-34.0); MCHC 29.2 g/dL (31.0-37.0); MCV 101.1 fL (80.0-100.0); MEAN PLATELET VOLUME 12.1 fL (7.4-10.4); MONOCYTES 3.9 % (2-11); NEUTROPHILS 75.9 % (40-80); RBC 2.74 10x6/uL (4.00-5.40); RDW 16.1 % (11.5-14.5); WBC 9.3 10x3/uL (4.8-10.8)
[2020-05-09 11:12] LABS: PLATELET COUNT 30 10x3/uL (130-400)
[2020-05-09 11:33] LABS: ALBUMIN 1.7 g/dL (3.4-5.0); BILIRUBIN - TOTAL 1.04 mg/dL (0.2-1.3); CARBON DIOXIDE 10.9 mmol/L (21.0-32.0); CREATININE - SERUM 3.6 mg/dL (0.6-1.3); PROTEIN - SERUM 4.1 g/dL (6.4-8.2)
[2020-05-09 11:51] LABS: CKMB 163.4 U/L (0.0-3.6); CREATINE KINASE 7335 UL (21-215); TROPONIN-I 56.283 ng/mL (0.000-0.060)
[2020-05-09 12:05] LABS: ANION GAP 38.7 mmol/L (8-16); POTASSIUM - SERUM 4.6 mmol/L (3.5-5.1)
[2020-05-09 12:09] LABS: CALCIUM 6.9 mg/dL (8.5-10.1)
[2020-05-09 13:00] LABS: APTT 177.4 SECONDS (22.8-39.4); PROTIME 77.7 SECONDS (11.6-15.0)
[2020-05-09 13:01] LABS: INR 10.07 (0.85-1.17)
--- NOTE | 2020-05-09 13:39 | NUR ---
BILATERAL GROINS PREP FOR HEART CATH. HIBCLENS BATH GIVEN WITH LINEN CHANGE. PATIENT STILL UNRESPONSIVE. NO URINE IN VICTOR CATH, IRRIGATED WITH 10 ML OF SALINE WITHOUT DIFFICULTY. AT BEDSIDE. LEVOPHED GTT AT 30 MCG, RYLEE AT 200 MCG, VASOPRESSIN AT 0.04UNITS. 1000CC D5W WITH 150 MEQ OF BICARB AT 125 ML HOUR. FIRST UNIT OF BLOOD INFUSING. WITHOUT REACTION. MONITOR ST.
--- NOTE | 2020-05-09 14:25 | NUR ---
TO GOLDBEATER PER BED. PORTABLE VENTILATOR. HERE
--- NOTE | 2020-05-09 15:05 | NUR ---
DR. LANTIGUA NOTIFIED OF NO URINE OUTPUT. RENAL NOTIFIED OF CONSULT.
--- NOTE | 2020-05-09 19:47 | NUR ---
called teddy hoover. patient notified of patient condition declining. states he is on his way.
--- NOTE | 2020-05-09 21:00 | NUR ---
AGUEDA BUSTILLO APN PRESENT, DISCUSSED CARE WITH PT , PT CHANGED TO DNR STATUS
--- NOTE | 2020-05-09 22:12 | NUR ---
PT , AGUEDA BUSTILLO PRESENT, DR GILL HERE TO PRONOUNCE, FAMILY PRESENT
--- NOTE | 2020-05-09 22:30 | NUR ---
CALLED KENYETTA, AWAITING CALLBACK, POST MORTEM CARE DONE
--- NOTE | 2020-05-09 23:25 | NUR ---
KENYETTA STATES OK TO RELEASE, NOTIFIED [facility]
--- NOTE | 2020-05-10 00:07 | NUR ---
PT BODY RELEASED TO HOME
--- NOTE | 2020-05-10 08:18 | CN ---
PATIENT NAME:NICHOLE VALENZUELA MEDICAL RECORD: [id number] : 48 LOCATION:[id number] ADMIT DATE: 05/06/20 ACCOUNT: [id number] CONSULTING PHYSICIAN: HOLLIS MCDONNELL MD REFERRING PHYSICIAN: VEL VILLA MD DATE OF CONSULTATION: 05/09/2020 HISTORY OF PRESENT ILLNESS: A 69-year-old female admitted with fever, headaches, back aches, shortness of breath, chills. Has a history of hypertension as well as Crohn's disease status post sigmoid colectomy, started on mesalamine approximately 4 weeks ago. She was tested for COVID initially and was found to be negative. She had fever up to 103, back aches, headaches, became more dyspneic, had basically respiratory collapse yesterday the late last evening with PEA requiring intubation. Troponins are markedly elevated. EKG is nonlocalizing and actually not quite impressive. At this point in time, she has had CPR, although given her elevated enzymes, suspect that I will need diagnostic angiography to further evaluation/guide treatment. PAST MEDICAL HISTORY: Includes; 1. History of Crohn's. 2. Hypertension. 3. Osteoporosis. 4. Dyslipidemia. MEDICATIONS: Include lovastatin 10 mg p.o. daily, potassium supplement [id number], mesalamine 800 mg p.o. b.i.d., Fosamax 70 mg p.o. weekly. SOCIAL HISTORY: Apparently was living independently before this. Nonsmoker. REVIEW OF SYSTEMS: Unobtainable due to the patient's factors. PHYSICAL EXAMINATION: GENERAL: Intubated and sedated. VITAL SIGNS: Pulse 126, blood pressure 86/41. HEENT: Normocephalic, atraumatic. NECK: No JVD or bruit. HEART: Regular, tachycardic. Questionable S4 gallop. LUNGS: Diminished air excursion. ABDOMEN: Soft, nontender. EXTREMITIES: Pulses 2+. Trace edema. IMPRESSION: Hard to interpret troponin in view of her possible overwhelming sepsis, recent CPR, etc. However, given the degree of elevation, I think angiography is indicated. This will be planned this afternoon. TRANSINT:[id number] Voice Confirmation ID: [id number] DOCUMENT ID: [id number] CONSULT REPORT [id number] NICHOLE VALENZUELA HOLLIS MCDONNELL MD at 0818 CC: [id number] DICTATION DATE: 05/09/20 0838 FIELD CANE SCALER HELPER: 05/09/20 1028 DIS IN 05/09/20 [id number] [place] [address]
--- NOTE | 2020-05-10 08:18 | EC ---
PATIENT:NICHOLE VALENZUELA DATE OF SERVICE: 05/06/20 SEX: F MEDICAL RECORD: [id number] DATE OF : 48 LOCATION:[facility] D.230 AGE OF PATIENT: 69 ADMISSION DATE: 05/06/20 REFERRING PHYSICIAN: INTERPRETING PHYSICIAN: HOLLIS MCDONNELL MD ECHOCARDIOGRAM REPORT ECHO CHARGES 4 ECHO COMPLETE Date: 05/08/20 CLINICAL DIAGNOSIS: AFIB,POSSIBLE PE, ASSESS FOR CLOTS/EF, RIGHT HEART STRAIN ECHOCARDIOGRAPHIC MEASUREMENTS (adult normal given) AC root (d.<3.7cm) 2.9 cm LV Septum d (<1.2 cm> 0.9 cm Valve Excursion 1.3 cm LV Septum (systole) 1.1 cm Left Atria (s.<4.0cm> 3.7 cm LVPW d(<1.2cm) 1.0 cm RV (d.<2.3cm) 3.7 cm LVPW (sytole) 1.2 cm LV diastole(<5.6CM) 4.8 cm MV E-F(>70mm/sec) cm LV systole 3.8 cm LVOT Diameter 1.7 cm MV exc.(>10mm) cm Est.ejection fraction (50-75%) % DOPPLER: LVIT cm/sec A 36.0 cm/sec E 99.0 cm/sec LA cm/sec RVSP 19 mmHg LVOT 72 cm/sec AOP1/2T m/s Asc. Ao 96 cm/sec RVOT 71 cm/sec RA cm/sec PA 84 cm/sec AV Gradient Peak 3.70 mmHg AV Mean 1.73 mmHg AV Area 1.8 cm MV Gradient Peak 7.08 mmHg MV Mean 2.44 mmHg MV Area cm COMMENTS: Spaghetti Press Helper: 2 SHIRA SANTIAGO Inspector Scales: 3 Dr. Helton TAPE# pacs Pericardial Effusion N DATE OF SERVICE: Adequate 2D, color-flow imaging, spectral Doppler, and M-Mode No LVH. LV internal dimensions are normal. 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 Aortic valve is tricuspid. No evidence of stenosis by Doppler interrogation. Left atrium is normal. Mitral valve shows no prolapse. Trace MR. Right-sided chambers are grossly normal. Trace TR. TRANSINT:[id number] Voice Confirmation ID: [id number] DOCUMENT ID: [id number] ECHOCARDIOGRAM REPORT [id number] NICHOLE VALENZUELA GREGORY A MD at 0818 CC: [id number] DICTATION DATE: 05/09/20 1241 JUICE STANDARDIZER: 05/09/20 1414 DIS IN 05/09/20 [id number] [place] [id number]
--- NOTE | 2020-05-10 14:08 | NUR ---
PER CMS PROTOCOL, RESTRAINT REPORT LOGGED INTO DATA BASE.
[2020-05-11 15:12] LABS: RMSF IGM 0.44 index (0.00-0.89)
--- NOTE | 2020-05-12 08:09 | OP ---
PATIENT NAME: NICHOLE VALENZUELA MEDICAL RECORD: [id number] :48 LOCATION:[facility] D.2306 ADMISSION DATE:05/06/20 SURGEON: HOLLIS MCDONNELL MD DATE OF OPERATION: 05/09/2020 PROCEDURE: Left heart catheterization, selective coronary angiography, right femoral artery approach. CATHETERS: A 5-Italian sheath, 5/4 left and right Brody, 5/4 pig. The arterial line was sewn in place to allow better access for arterial blood gases, monitoring for blood pressure on this patient critically ill on multiple pressures. FINDINGS: Left ventriculography in 30-degree MORELAND view shows severe global hypokinesis with EF 10-15%. CORONARY ANATOMY: LEFT MAIN: Left main is free of disease. LAD: Free of disease in the diagonal system. CIRCUMFLEX: Free of disease in the marginal system. RIGHT CORONARY ARTERY: Dominant artery, rise to PDA, free of disease. IMPRESSION: Severely decreased LV systolic function, normal coronary arteries. Suspect this is part of the process of recurrent underlying condition. Again, will leave the sheath in place. Prognosis appears quite poor at this point. TRANSINT:[id number] Voice Confirmation ID: [id number] DOCUMENT ID: [id number] HOLLIS MCDONNELL MD at 0809 CC: [id number] DICTATION DATE: 05/09/20 1444 CARPET FINISHING SUPERVISOR: 05/10/20 0024 DIS IN 05/09/20 [facility] [address] [id number]
== END 2020-05-09 22:15 | DRG 871 ==
LOC: D.ER 03:53 → D.ICU 06:34 → D.M2 06:34 → D.ICU 05-08 20:08
PROVIDERS: Family Medicine; Internal Medicine Interventional Cardiology; Internal Medicine Pulmonary Disease; ADMIT Family Medicine Adult Medicine; ATTEND Family Medicine Adult Medicine
PROC: 0BH17EZ Insertion of Endotracheal Airway into Trachea, Via Natural or Artificial Opening (ICD-10-PCS; 2020-05-09)
PROC: 05HY33Z Insertion of Infusion Device into Upper Vein, Percutaneous Approach (ICD-10-PCS; 2020-05-09)
PROC: B2111ZZ Fluoroscopy of Multiple Coronary Arteries using Low Osmolar Contrast (ICD-10-PCS; 2020-05-09)
PROC: B2151ZZ Fluoroscopy of Left Heart using Low Osmolar Contrast (ICD-10-PCS; 2020-05-09)
PROC: 4A023N7 Measurement of Cardiac Sampling and Pressure, Left Heart, Percutaneous Approach (ICD-10-PCS; 2020-05-09)
PROC: 5A1935Z Respiratory Ventilation, Less than 24 Consecutive Hours (ICD-10-PCS; principal; 2020-05-09 14:00)
DX: A41.9 Sepsis, unspecified organism (principal); G93.41 Metabolic encephalopathy; J96.00 Acute respiratory failure, unspecified whether with hypoxia or hypercapnia; N17.0 Acute kidney failure with tubular necrosis; K50.90 Crohn's disease, unspecified, without complications; A93.8 Other specified arthropod-borne viral fevers; E87.1 Hypo-osmolality and hyponatremia; E87.2 Acidosis; E87.6 Hypokalemia; I46.9 Cardiac arrest, cause unspecified; E83.42 Hypomagnesemia; I10 Essential (primary) hypertension; G20 Parkinson's disease; Z85.038 Personal history of other malignant neoplasm of large intestine; R00.0 Tachycardia, unspecified; D64.9 Anemia, unspecified; R05 Cough; E78.5 Hyperlipidemia, unspecified; I48.91 Unspecified atrial fibrillation